=== PATIENT | female | born 1945 | race Caucasian/White ===

== ENCOUNTER → 2018-05-18 | Outpatient (REF) | payer MEDICARE, BC ==
[~2018-05-18] MED LIST: ACYCLOVIR200 MG OR; ALTOPREV40 MG OR; ATENOLOL25 MG OR; CIPRO250 MG PO; EXCEDRI3 PO; FISH OIL1000 M2 PO; FOSAMAX70 MG OR; HYDROCODON XX; MAGNESIUM400 MG PO; OMEGA 3340 MG PO; PREVACID30 M1 PO; PROTONIX20 M1 PO; SIMVASTATIN40 MG PO; STOOL SOFTE1 PO; TRAMADOL HCL50 MG PO; TYLENOL500 MG OR; VITAMIN C500 M6 PO
[2018-05-18 13:43] LABS: GFR > 60 ML/MIN (>=60 (CALC)); GFR FOR AFR.AMER. > 60 ML/MIN (>=60 (CALC))
== END | disposition home or self-care (01) ==
LOC: CT 13:14
DX: K86.2 Cyst of pancreas (principal)
CPT/HCPCS: Q9967

== ENCOUNTER → 2018-06-18 | Outpatient (REF) | payer MEDICARE, BC | END | disposition home or self-care (01) | LOC: LAB 12:34 | PROVIDERS: ATTEND Surgery | DX: K86.9 Disease of pancreas, unspecified (principal) ==

== ENCOUNTER 2018-11-15 06:48 | Emergency (ER) | payer MEDICARE, BC ==
[~2018-11-15] VITALS: Ht 152.4 cm; Wt 60.0 kg
[2018-11-15] MEDS ORDERED: OMEPRAZOLE20 MG PO (08:27)
[2018-11-15] MEDS ORDERED: LIPITOR40 M1 PO (08:27)
[2018-11-15] MEDS ORDERED: ACYCLOVIR200 MG PO (08:28)
[2018-11-15] MEDS ORDERED: TESSALON PERLE100 MG PO (08:29)
[2018-11-15] MEDS ORDERED: BREO ELLIPTA1 INH IN (08:30)
[2018-11-15] MEDS ORDERED: ALBUTEROL0.63 MG/3 IN (08:31)
[2018-11-15] MEDS ORDERED: FLEXERIL PO (08:55)
[2018-11-15] MEDS ORDERED: TORADOL PO (08:55)
[2018-11-15 09:14] VITALS: BP 145/76
== END 2018-11-15 09:25 | disposition home or self-care (01) ==
LOC: ED 06:48
DX: S16.1XXA Strain of muscle, fascia and tendon at neck level, initial encounter (principal); R51 Headache; I10 Essential (primary) hypertension; X58.XXXA Exposure to other specified factors, initial encounter

== ENCOUNTER 2019-01-25 15:46 | Observation (INO) | payer MEDICARE, BC ==
[~2019-01-25] VITALS: Ht 152.4 cm; Wt 60.0 kg
[~2019-01-25 15:46] MED LIST changes: -ACYCLOVIR200 MG OR; +ACYCLOVIR200 MG PO; +ALBUTEROL0.63 MG/3 IN; -ATENOLOL25 MG OR; +ATENOLOL25 MG PO; +BREO ELLIPTA1 INH IN; +FLEXERIL PO; +LIPITOR40 M1 PO; +OMEPRAZOLE20 MG PO; +TESSALON PERLE100 MG PO; +TORADOL PO
[2019-01-25 16:45] LABS: HEMATOCRIT 39.5 % (37.0-47.0); IMMATURE GRANULOCYTES 0.3 % (0.0-5.0); MEAN CELL VOLUME 92.7 fL CALC (80.0-100.0); MEAN CORPUSCULAR HGB 30.5 pG CALC (26.0-32.0); MEAN CORPUSCULAR HGB CONC 32.9 g/L CALC (32.0-36.0); NEUT# 9.74 thou/uL (2.00-7.15); RED BLOOD COUNT 4.26 mill/uL (4.20-5.60); RED CELL DISTRI WIDTH 12.8 % (11.5-15.5)
[2019-01-25 16:48] LABS: ANION GAP 13 (6-22 (CALC)); BUN 12 mg/dL (8-23); BUN/CREATININE RATIO 16 (12-20 (CALC)); CARBON DIOXIDE 27 mmol/l (22-30); CHLORIDE 101 mmol/l (95-108); CREATININE 0.8 mg/dL (0.5-1.0); GFR > 60 ML/MIN (>=60 (CALC)); GFR FOR AFR.AMER. > 60 ML/MIN (>=60 (CALC)); POTASSIUM 3.8 mmol/l (3.5-5.1); SODIUM 137 mmol/l (137-146)
[2019-01-25 19:45] VITALS: BP 128/81
[2019-01-25 23:45] VITALS: BP 106/61
[2019-01-26 04:00] VITALS: BP 110/68
[2019-01-26 07:27] VITALS: BP 120/69
[2019-01-26 11:00] VITALS: BP 113/70
[2019-01-26] MEDS ORDERED: ADLT ASA LOW81 MG PO (13:55)
[2019-01-26] MEDS ORDERED: NITROSTAT0.4 MG SL (13:56)
== END 2019-01-26 14:59 | disposition home or self-care (01) ==
LOC: ED 15:46 → ED-I 18:41 → ED 18:56 → MS2 18:57
PROVIDERS: Family Medicine; ADMIT Internal Medicine; ATTEND Internal Medicine
DX: R07.2 Precordial pain (principal); I10 Essential (primary) hypertension; E78.5 Hyperlipidemia, unspecified; I34.1 Nonrheumatic mitral (valve) prolapse; G43.909 Migraine, unspecified, not intractable, without status migrainosus; J84.10 Pulmonary fibrosis, unspecified
CPT/HCPCS: Q9967